=== PATIENT | female | born 1985 | race Two or more races ===

== ENCOUNTER 2024-10-18 10:39 | Outpatient (RCR) | payer MEDICAID, SELFPAY ==
--- NOTE | 2024-10-18 11:22 | CTCFLWUP_ITS ---
[facility] [address] [place], [place] [address] FOLLOW-UP NOTE Date: 10/18/2024 MR#: [id number] Name: NADER MATA : 1985 Dx: C73 Malignant neoplasm of thyroid gland Identification. Patient with [id number] papillary thyroid carcinoma status post total thyroidectomy 04/[address] Valdovinos. There was multifocal papillary carcinoma thyroid classic type invo lving both right and left lobes with 3 positive nodes of 4 removed. Radioactive iodine 106 mCi followed by total by iodine scan on 08/03/2024 showed residual thyroid act ivity with no finding of met disease. Patient followed radiation therapy safety guidelines. For her young age this is stage I. Patient has been taking 100 mcg of Synthroid with most recent labs 10/10/2024 revealing TSH to be hig h at 11.8 with T4 being 1.2. Calcium 8.9 Thyroid antibody 5.1 thyroglobulin will follow. Saw patient today and she appeared well with the OpSite healing well. 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 #2. Postop radioiodine 106 mCi total body iodine scan no sign of mets #3. Paient to increase thyroid medication to 112 mcg a day to keep her at euthyroid level. #4 check thyroid functions thyroglobulin thyroid antibody before next visit.. Cc: Preston Valdovinos MD Electronically signed by: Juan Gregorio M.D. 10/18/2024 11:20 AM
== END 2024-10-18 23:59 | disposition home or self-care (01) ==
LOC: SCTC 10:39
PROVIDERS: PCP Physician Assistant; Referring Provider Radiology Therapeutic Radiology; Visit Provider Radiology Therapeutic Radiology
DX: C73 Malignant neoplasm of thyroid gland (principal); E89.0 Postprocedural hypothyroidism; Z79.890 Hormone replacement therapy
CPT/HCPCS: 99213; G0463

== ENCOUNTER 2025-01-17 11:03 | Outpatient (RCR) | payer MEDICAID, SELFPAY ==
--- NOTE | 2025-01-17 11:54 | CTCFLWUP_ITS ---
[facility] [address] [place], [place] [address] FOLLOW-UP NOTE Date: 01/17/2025 MR#: [id number] Name: NADER MATA : 1985 Dx: C73 Malignant neoplasm of thyroid gland Identification. Patient with [id number] papillary thyroid carcinoma status post total thyroidectomy 05/04/2024 performed in [place].. There was multifocal papillary carcinoma thyroid classic type involving both right and left lobes with 3 positive nodes of 4 removed. 4.4 cm multifocal classic type papillary in the isthmus extending to the right and left lower lobe. Right mid 0.4 cm left superior at least 1.9 cm and left inferior pole at least 0.6 cm. [id number] Radioactive iodine 106 mCi followed by total body iodine scan 08/03/2024 showed residual thyroid activity with no finding of met disease. Patient followed radiation therapy safety guidelines. For her young age this is stage I. Seeing her postop patient appears well except for some dryness in her mouth and states that she feels a bit stiff when swallowing. Most recent labs 01/10/2025 revealed her TSH to be 3.31 and T4 free to be 1.27 euthyroid. Thyroglobulin antibody was 1.5 thyroglobulin still pending. Examined her neck which was revealing of postop site with no sign of regrowth. Assessment. 1.Stage I papillary thyroid carcinoma status post total thyroidectomy 05/04/2024 2. Postop radioiodine 106 mCi followed by total body iodine scan 08/03/2024 no signs of mets. Thyroglobulin antibody 1.5 thyroglobulin still pending. 3. Euthyroid on 112 mcg of Synthroid. 4 . Follow-up in 3 months with ultrasound and labs prior. Electronically signed by: Juan Gregorio M.D. 01/17/2025 11:52 AM
== END 2025-02-15 23:59 | disposition home or self-care (01) ==
LOC: SCTC 11:03
PROVIDERS: PCP Physician Assistant; Referring Provider Physician Assistant; Visit Provider Radiology Therapeutic Radiology
DX: C73 Malignant neoplasm of thyroid gland (principal); E89.0 Postprocedural hypothyroidism; Z92.3 Personal history of irradiation; Z79.890 Hormone replacement therapy
CPT/HCPCS: 99213; G0463

== ENCOUNTER → 2025-02-03 | Outpatient (CLI) | payer MEDICAID, SELFPAY ==
--- NOTE | 2025-02-03 13:30 | XR_ITS ---
Examination: Thyroid sonography complete TECHNIQUE: Grayscale sonographic images thyroid lobes with color flow analysis Exam date and time: February 03, 2025 1357 hours INDICATIONS: Thyroidectomy May 11 thyroid cancer diagnosis tenderness in the neck region one year FINDINGS: No soft tissue mass in the thyroid beds IMPRESSION: No soft tissue mass in the thyroid bed
== END | disposition home or self-care (01) ==
LOC: CDIM 13:29
PROVIDERS: PCP Physician Assistant; Referring Provider Radiology Therapeutic Radiology; Visit Provider Radiology Therapeutic Radiology
DX: C73 Malignant neoplasm of thyroid gland (principal)
CPT/HCPCS: 76536

== ENCOUNTER 2025-04-18 09:08 | Outpatient (RCR) | payer MEDICAID, SELFPAY ==
--- NOTE | 2025-04-18 09:43 | CTCFLWUP_ITS ---
[facility] [address] [place], [place] [address] FOLLOW-UP NOTE Date: 04/18/2025 MR#: [id number] Name: NADER MATA : 1985 Dx: C73 Malignant neoplasm of thyroid gland Identification. Patient with pT3b N1a papillary carcinoma status post total thyroidectomy 05/04/2024 performed in [place]. [place] to be intermediate risk had 106 mCi followed by total body iodine scan 08/03/2024 showing residual thyroid activity with no finding of met disease. For young age this is stage I. Most recent ultrasound 02/03/2025 no mass in thyroid bed Currently on 112 mcg of Synthroid. Most recent lab 04/13/2025 TSH slightly high 4.90 (0.450-4.5) T4 1.22 (0.82- 1.77) Thyroglobulin antibody 0.9 unfortunately thyroglobulin was not performed despite being requested. A#1. Stage I papillary thyroid carcinoma status post total thyroidectomy postop radioiodine. A#2. Most recent ultrasound unremarkable. A#3. Told to increase Synthroid to 125 mcg a day. A#4. Repeat labs with CBC CMP thyroid functions thyroglobulin thyroid antibody before next visit. Electronically signed by: Juan Gregorio M.D. 04/18/2025 9:41 AM
== END 2025-05-18 23:59 | disposition home or self-care (01) ==
LOC: SCTC 09:08
PROVIDERS: PCP Physician Assistant; Referring Provider Physician Assistant; Visit Provider Radiology Therapeutic Radiology
DX: C73 Malignant neoplasm of thyroid gland (principal); E89.0 Postprocedural hypothyroidism; Z79.890 Hormone replacement therapy; Z92.3 Personal history of irradiation
CPT/HCPCS: 99213; G0463

== ENCOUNTER → 2025-07-11 | Outpatient (CLI) | payer MEDICAID, SELFPAY ==
--- NOTE | 2025-07-11 08:45 | XR_ITS ---
EXAMINATION: PET/CT FUSION SKULL TO THIGH EXAM DATE AND TIME: July 11, 2025, 0907 hours INDICATIONS: Diagnosis thyroid cancer post treatment restaging CTDI:vol (mGy) 9.42 DLP: (mGycm) 978.01 PROCEDURE: 16.8 mCi FDG was administered intravenously To allow for distribution and uptake of radiotracer, the patient was allowed to rest quietly in a shielded room. Imaging was performed on an integrated 16-slice PET/CT scanner, with scanning from the skull base to the mid thigh. Serum blood glucose at the time of the injection was measured 110 mg/dL. CT scanning was performed without oral or intravenous contrast material. FINDINGS: Head and Neck: 10 mm hypermetabolic focus in the left thyroid bed axial images 63 Chest: There is no marianne hypermetabolism in the chest. There are no pulmonary nodules. Abdomen and Pelvis: There is no marianne hypermetabolism in retroperitoneal or pelvic chains. The spleen is normal in size and FDG avidity. Musculoskeletal: Marrow uptake is within normal range. IMPRESSION: 10 mm hypermetabolic focus in the left thyroid bed, axial image [address] soft tissue neck post intravenous contrast follow-up to exclude recurrent or residual tumor at this site
== END | disposition home or self-care (01) ==
PROVIDERS: Referring Provider Internal Medicine Endocrinology, Diabetes & Metabolism; Visit Provider Internal Medicine Endocrinology, Diabetes & Metabolism
DX: R22.1 Localized swelling, mass and lump, neck (principal); C73 Malignant neoplasm of thyroid gland
CPT/HCPCS: 78815; A9552

== ENCOUNTER 2025-07-19 08:51 | Outpatient (RCR) | payer MEDICAID, SELFPAY ==
--- NOTE | 2025-07-19 10:30 | CTCFLWUP_ITS ---
[facility] [address] [place], [place] [address] FOLLOW-UP NOTE Date: 07/19/2025 MR#: [id number] Name: NADER MATA : 1985 Dx: C73 Malignant neoplasm of thyroid gland Identification. [id number] papillary carcinoma thyroid status post total thyroidectomy 05/04/2024 performed in [place]. 42 intermediate risk had 106 mCi followed by total balance scan 08/03/2024 showing residual thyroid activity with no finding of met disease. For her young age it was a stage I. Most recent ultrasound 02/03/2025 no tissue mass in the thyroid. Most recent labs 07/12/2025 euthyroid at T4 1.17 TSH 0.893 thyroglobulin antibody less than 1.0 thyroglobulin 9.9 CMP including calcium unremarkable. Currently on 150 mcg of Synthroid. Meds being adjusted by rest room attendant according to patient. PET scan ordered by her rest room attendant, Elvis DUMONT on 07/12/2025 showed an uptake in the left thyroid area [address] scan was recommended. As I see her today patient appears well no masses felt in her neck. #1. Stage I pT3b N1a papillary carcinoma thyroid status post total thyroidectomy 05/04/2024 no sign of mets in total body iodine scan. Ultrasound no recurrence January 1825. #2. PET scan ordered by rest room attendant shows uptake in the left thyroid region. CT scan of neck was recommended which I presume will be followed through. #3. I will see patient again in 3 months with thyroglobulin markers rechecked. Prior. Electronically signed by: Juan Gregorio M.D. 07/19/2025 10:28 AM
== END 2025-08-18 23:59 | disposition home or self-care (01) ==
LOC: SCTC 08:51
PROVIDERS: PCP Physician Assistant; Referring Provider Specialist; Visit Provider Radiology Therapeutic Radiology
DX: C73 Malignant neoplasm of thyroid gland (principal); E89.0 Postprocedural hypothyroidism; Z79.890 Hormone replacement therapy
CPT/HCPCS: 99213; G0463